=== PATIENT | male | born 1980 | race Caucasian/White ===

== ENCOUNTER → 2022-01-03 | Day surgery (SDC) | payer OTHER ==
[2022-01-02 09:57] LABS: BASOPHILS # (AUTO) 0.1 (0.0-0.1); BASOPHILS % 0.6 % (0.0-1.0); EOSINOPHILS # (AUTO) 0.1 (0.0-0.4); EOSINOPHILS % 1.4 % (0.0-6.0); HEMATOCRIT 46.7 % (38.2-49.6); LYMPHOCYTES # (AUTO) 1.4 (1.0-3.2); LYMPHOCYTES % 15.6 % (18.0-39.1); MEAN CORPUSCULAR HEMOGLOBIN 32.8 pg (28-32); MEAN CORPUSCULAR HGB CONC 34.3 g/dL (31-35); MEAN CORPUSCULAR VOLUME 95.7 fL (81-99); MONOCYTES # (AUTO) 0.7 (0.2-0.8); MONOCYTES % 7.9 % (4.4-11.3); NEUTROPHILS # (AUTO) 6.5 (2.1-6.9); PLATELET COUNT 234 x10e3/uL (140-360); RED BLOOD COUNT 4.88 x10e6/uL (4.3-5.7); RED CELL DISTRIBUTION WIDTH 11.9 % (11.7-14.4)
[~2022-01-03] MED LIST: BUPIVACAINE 0.25% 30ML SDV ONE; BUPIVACAINE 0.5%/EPI 30 ML SDV INJ ONE; BUPROPION XL150 MG PO; CLINDAMYCIN PHOS 900MG/ 50ML 50 ML IV ONE; Clindamycin INJ 300 MG/50 ML 50 ML IV ONE; NEURONTIN100 MG PO; PRAZOSIN HCL1 MG PO; ROPIVACAINE 0.5% 5 MG/ML 30 ML SDV ONE; SCOPOLAMINE 1 MG PATCH ONE; SERTRALINE HCL100 MG PO; TRAZODONE HCL50 MG PO; VITAFOL GUMMIE1 EACH PO; VITALEE TABLET0.4 MG PO
[2022-01-03 09:45] VITALS: BP 116/77
== END | disposition home or self-care (01) ==
LOC: OR 06:44
PROVIDERS: ATTEND Orthopaedic Surgery
DX: S46.222A Laceration of muscle, fascia and tendon of other parts of biceps, left arm, initial encounter (principal); G47.33 Obstructive sleep apnea (adult) (pediatric); X50.0XXA Overexertion from strenuous movement or load, initial encounter; Y92.89 Other specified places as the place of occurrence of the external cause; Y99.0 Civilian activity done for income or pay; Z88.0 Allergy status to penicillin; Z01.810 Encounter for preprocedural cardiovascular examination; Z79.899 Other long term (current) drug therapy
CPT/HCPCS: 24342; 36415; 85025; 93005; J2795